=== PATIENT | female | born 1950 | race Caucasian/White ===

== ENCOUNTER 2016-10-02 14:42 | Inpatient (IN) | payer MEDICARE, OTHER ==
[~2016-10-02] VITALS: Ht 160 cm; Wt 106.7 kg
[~2016-10-02 14:42] MED LIST: AZIL80TA PO; NEBI20TA2 PO
[2016-10-02] MEDS ORDERED: VERA240C2 PO (15:28)
[2016-10-02] MEDS ORDERED: VALS1TAB28 PO (15:28)
[2016-10-02] MEDS ORDERED: ACETAMINOPHEN 325 MG TABLET PO ONE (15:30)
[2016-10-02] MEDS ORDERED: ASPIRIN 81 MG TABLET CHEW PO ONE (15:30)
[2016-10-02 15:46] LABS: BLOOD UREA NITROGEN 16 mg/dL (7-18)
[2016-10-02] MEDS ORDERED: ACETAMINOPHEN 325 MG TABLET ONE (15:47)
[2016-10-02] MEDS ORDERED: ASPIRIN 81 MG TABLET CHEW ONE (15:47)
[2016-10-02 16:07] LABS: DIFF TOTAL CELLS COUNTED 100 CELL DIFF
[2016-10-02 16:10] LABS: VERIFY COUNTS? YES
[2016-10-02 16:18] LABS: IS PT STATUS REG ER OR PRE ER? YES
[2016-10-02] MEDS ORDERED: NITROGLYCERIN OINT 2%, 1GM TP ONE ×2 (17:00→18:28)
[2016-10-02] MEDS ORDERED: BISACODYL 10 MG SUPP PR PRN (17:30)
[2016-10-02] MEDS ORDERED: SENNA/DOCUSATE TABLET PO PRN (17:30)
[2016-10-02] MEDS ORDERED: MORPHINE SULFATE 4 MG/ML, 1ML IV PRN (17:30)
[2016-10-02] MEDS ORDERED: ACETAMINOPHEN 650 MG/20.3 ML UDC PO PRN (17:30)
[2016-10-02] MEDS ORDERED: FUROSEMIDE 20 MG/2 ML IV ONE (17:30)
[2016-10-02] MEDS ORDERED: LABETALOL 5MG/ML, 20ML IV PRN (17:30)
[2016-10-02] MEDS ORDERED: NITROGLYCERIN 0.4 MG/SPRAY SL PRN (17:30)
[2016-10-02 18:07] LABS: ASPARTATE AMINO TRANSFERASE 29 U/L (15-37); BLOOD UREA NITROGEN 16 mg/dL (7-18); C-REACTIVE PROTEIN, QUANT 0.62 mg/dL (0.02-0.49)
[2016-10-02] MEDS ORDERED: FUROSEMIDE 20 MG/2 ML ONE (18:30)
[2016-10-02] MEDS ORDERED: HEPARIN 5,000 UNITS/ML, 1ML ONE (18:30)
[2016-10-02] MEDS: HEPARIN 5,000 UNITS/ML, 1ML SQ SCH (18:35)
[2016-10-02 19:50] VITALS: BP 128/86
[2016-10-02] MEDS: SIMVASTATIN 10 MG TABLET PO SCH (21:58)
[2016-10-02] MEDS: SODIUM CHLORIDE FLUSH 10ML SYR IVF SCH (21:58)
[2016-10-02 23:39] LABS: IS PT STATUS REG ER OR PRE ER? NO
[2016-10-03 02:00] VITALS: BP 131/82
[2016-10-03] MEDS: HEPARIN 5,000 UNITS/ML, 1ML SQ SCH ×3 (02:40→20:18)
[2016-10-03 05:38] LABS: BLOOD UREA NITROGEN 16 mg/dL (7-18)
[2016-10-03 05:42] LABS: ASPARTATE AMINO TRANSFERASE 23 U/L (15-37)
[2016-10-03 05:50] LABS: IS PT STATUS REG ER OR PRE ER? NO
[2016-10-03 07:42] VITALS: BP 104/69
[2016-10-03] MEDS ORDERED: MAGNESIUM SULFATE PMX 2GM/50ML 50 ML IV ONE (08:30)
[2016-10-03] MEDS ORDERED: POTASSIUM CHLORIDE 20 MEQ TAB.ER.PRT PO ONE (08:30)
[2016-10-03] MEDS ORDERED: REGADENOSON 0.4 MG/5 ML SYRINGE ONE (09:06)
[2016-10-03] MEDS: SODIUM CHLORIDE FLUSH 10ML SYR IVF SCH ×2 (12:43→20:19)
[2016-10-03] MEDS: ASPIRIN 81 MG TABLET EC PO SCH (12:43)
[2016-10-03] MEDS: BETAMETHASONE DIPRO CRM 0.05%, 15GM TP SCH (12:48)
[2016-10-03] MEDS ORDERED: POTASSIUM CHLORIDE 20 MEQ TAB.ER.PRT ONE (12:53)
[2016-10-03 13:46] VITALS: BP 138/83
[2016-10-03 19:59] VITALS: BP 122/75
[2016-10-03] MEDS: SIMVASTATIN 10 MG TABLET PO SCH (20:19)
[2016-10-04 02:07] VITALS: BP 129/83
[2016-10-04] MEDS: HEPARIN 5,000 UNITS/ML, 1ML SQ SCH ×3 (05:50→19:53)
[2016-10-04 08:07] VITALS: BP 125/76
[2016-10-04] MEDS ORDERED: HYDROCHLOROTHIAZIDE 12.5 MG CAPSULE PO SCH (09:00)
[2016-10-04] MEDS ORDERED: VALSARTAN 320 MG TABLET PO SCH (09:00)
[2016-10-04] MEDS: SODIUM CHLORIDE FLUSH 10ML SYR IVF SCH ×2 (09:00→19:54)
[2016-10-04] MEDS: ASPIRIN 81 MG TABLET EC PO SCH (09:03)
[2016-10-04] MEDS: BETAMETHASONE DIPRO CRM 0.05%, 15GM TP SCH (09:04)
[2016-10-04 09:47] VITALS: BP 138/60
[2016-10-04] MEDS ORDERED: DIPHENHYDRAMINE 25 MG CAPSULE PO ONE (12:00)
[2016-10-04] MEDS ORDERED: ACETAMINOPHEN 500 MG TABLET PO ONE (12:00)
[2016-10-04] MEDS: FAMOTIDINE 40 MG TABLET PO SCH ×2 (12:56→19:53)
[2016-10-04 13:30] VITALS: BP 118/73
[2016-10-04 19:34] VITALS: BP 127/86
[2016-10-04] MEDS: SIMVASTATIN 10 MG TABLET PO SCH (19:52)
[2016-10-04] MEDS: METOPROLOL TARTRATE 25 MG TABLET PO SCH (19:53)
[2016-10-05 01:52] VITALS: BP 107/79
[2016-10-05] MEDS: HEPARIN 5,000 UNITS/ML, 1ML SQ SCH (05:03)
[2016-10-05] MEDS ORDERED: ASPI-621 PO (07:50)
[2016-10-05] MEDS ORDERED: METO25TA35 PO (07:50)
[2016-10-05] MEDS ORDERED: SIMV10TA3 PO (07:50)
[2016-10-05] MEDS: METOPROLOL TARTRATE 25 MG TABLET PO SCH (07:57)
[2016-10-05] MEDS: FAMOTIDINE 40 MG TABLET PO SCH (07:57)
[2016-10-05] MEDS: BETAMETHASONE DIPRO CRM 0.05%, 15GM TP SCH (07:57)
[2016-10-05] MEDS: ASPIRIN 81 MG TABLET EC PO SCH (07:57)
[2016-10-05 08:26] VITALS: BP 114/75
[2016-10-05] MEDS: SODIUM CHLORIDE FLUSH 10ML SYR IVF SCH (09:41)
== END 2016-10-05 10:35 | disposition home or self-care (01) | DRG 92 ==
LOC: ED 16:46 → EDIP 16:47 → ED 16:53 → 5SO 19:39 → DCLOUNGE 10-05 10:25
PROVIDERS: ADMIT Internal Medicine; ATTEND Family Medicine
DX: R20.2 Paresthesia of skin (principal); Z68.41 Body mass index [BMI] 40.0-44.9, adult; N18.9 Chronic kidney disease, unspecified; E78.5 Hyperlipidemia, unspecified; R07.89 Other chest pain; E87.6 Hypokalemia; Z96.642 Presence of left artificial hip joint; T46.1X5A Adverse effect of calcium-channel blockers, initial encounter; E66.9 Obesity, unspecified; D72.829 Elevated white blood cell count, unspecified; I87.8 Other specified disorders of veins; I12.9 Hypertensive chronic kidney disease with stage 1 through stage 4 chronic kidney disease, or unspecified chronic kidney disease; Z90.49 Acquired absence of other specified parts of digestive tract; Y92.89 Other specified places as the place of occurrence of the external cause
CPT/HCPCS: 36415; 70450; 70551; 71020; 78452; 80048; 80053; 80061; 82040; 83735; 83880; 84439; 84443; 84484; 85025; 85027; 85610; 85651; 85730; 86140; 93005; 93017; 93306; 93970; 96374; J1644; J2785; A9502; C9898; J1940; J3475; Q0163

== ENCOUNTER → 2016-10-12 | Outpatient (CLI) | payer MEDICARE, OTHER ==
[~2016-10-12] MED LIST changes: +ASPI-621 PO; +METO25TA35 PO; +SIMV10TA3 PO; +VALS1TAB28 PO; +VERA240C2 PO
== END | disposition home or self-care (01) ==
LOC: WOUND 09:50
PROVIDERS: ATTEND Physician Assistant
DX: L97.821 Non-pressure chronic ulcer of other part of left lower leg limited to breakdown of skin (principal); L97.811 Non-pressure chronic ulcer of other part of right lower leg limited to breakdown of skin; E78.5 Hyperlipidemia, unspecified; L27.8 Dermatitis due to other substances taken internally; I12.9 Hypertensive chronic kidney disease with stage 1 through stage 4 chronic kidney disease, or unspecified chronic kidney disease; N18.4 Chronic kidney disease, stage 4 (severe); E66.9 Obesity, unspecified; I10 Essential (primary) hypertension; Z68.41 Body mass index [BMI] 40.0-44.9, adult; Z72.89 Other problems related to lifestyle
CPT/HCPCS: G0463; WOU0463

== ENCOUNTER → 2016-10-19 | Outpatient (CLI) | payer MEDICARE, OTHER | END | disposition home or self-care (01) | LOC: WOUND 10:07 | PROVIDERS: ATTEND Physician Assistant | DX: L97.811 Non-pressure chronic ulcer of other part of right lower leg limited to breakdown of skin (principal); L97.821 Non-pressure chronic ulcer of other part of left lower leg limited to breakdown of skin; I10 Essential (primary) hypertension; E78.5 Hyperlipidemia, unspecified; L27.8 Dermatitis due to other substances taken internally; Z72.89 Other problems related to lifestyle; Z68.41 Body mass index [BMI] 40.0-44.9, adult; I12.9 Hypertensive chronic kidney disease with stage 1 through stage 4 chronic kidney disease, or unspecified chronic kidney disease; N18.4 Chronic kidney disease, stage 4 (severe); E66.9 Obesity, unspecified; Z96.642 Presence of left artificial hip joint | CPT/HCPCS: G0463; WOU0463 ==

== ENCOUNTER → 2016-10-31 | Outpatient (CLI) | payer MEDICARE, OTHER | END | disposition home or self-care (01) | LOC: CFH 10:17 | PROVIDERS: ATTEND Physician Assistant | DX: I87.2 Venous insufficiency (chronic) (peripheral) (principal); S91.002A Unspecified open wound, left ankle, initial encounter; S91.001A Unspecified open wound, right ankle, initial encounter; R60.0 Localized edema; I65.23 Occlusion and stenosis of bilateral carotid arteries; X58.XXXA Exposure to other specified factors, initial encounter; Y93.89 Activity, other specified; Y92.89 Other specified places as the place of occurrence of the external cause; Y99.8 Other external cause status | CPT/HCPCS: 93922; 93925; 93970 ==

== ENCOUNTER → 2016-11-02 | Outpatient (CLI) | payer MEDICARE, OTHER | END | disposition home or self-care (01) | LOC: WOUND 10:08 | PROVIDERS: ATTEND Physician Assistant | DX: L97.811 Non-pressure chronic ulcer of other part of right lower leg limited to breakdown of skin (principal); L97.821 Non-pressure chronic ulcer of other part of left lower leg limited to breakdown of skin; I87.303 Chronic venous hypertension (idiopathic) without complications of bilateral lower extremity; L27.8 Dermatitis due to other substances taken internally; E78.5 Hyperlipidemia, unspecified; E66.9 Obesity, unspecified; I12.9 Hypertensive chronic kidney disease with stage 1 through stage 4 chronic kidney disease, or unspecified chronic kidney disease; N18.4 Chronic kidney disease, stage 4 (severe); Z96.642 Presence of left artificial hip joint; Z68.41 Body mass index [BMI] 40.0-44.9, adult; Z72.89 Other problems related to lifestyle | CPT/HCPCS: G0463; WOU0463 ==

== ENCOUNTER → 2017-02-18 | Outpatient (CLI) | payer MEDICARE, OTHER | END | disposition home or self-care (01) | LOC: WOUND 11:01 | PROVIDERS: ATTEND Internal Medicine | DX: E11.622 Type 2 diabetes mellitus with other skin ulcer (principal); L97.811 Non-pressure chronic ulcer of other part of right lower leg limited to breakdown of skin; I87.303 Chronic venous hypertension (idiopathic) without complications of bilateral lower extremity; E11.22 Type 2 diabetes mellitus with diabetic chronic kidney disease; I12.9 Hypertensive chronic kidney disease with stage 1 through stage 4 chronic kidney disease, or unspecified chronic kidney disease; N18.4 Chronic kidney disease, stage 4 (severe); E78.5 Hyperlipidemia, unspecified; E66.9 Obesity, unspecified; Z68.41 Body mass index [BMI] 40.0-44.9, adult; Z72.89 Other problems related to lifestyle; Z96.642 Presence of left artificial hip joint | CPT/HCPCS: G0463; WOU0463 ==

== ENCOUNTER → 2017-03-04 | Outpatient (CLI) | payer MEDICARE, OTHER | LOC: WOUND 11:20 | PROVIDERS: ATTEND Family Medicine | DX: E11.622 Type 2 diabetes mellitus with other skin ulcer (principal); L97.811 Non-pressure chronic ulcer of other part of right lower leg limited to breakdown of skin; I87.303 Chronic venous hypertension (idiopathic) without complications of bilateral lower extremity; E11.22 Type 2 diabetes mellitus with diabetic chronic kidney disease; I12.9 Hypertensive chronic kidney disease with stage 1 through stage 4 chronic kidney disease, or unspecified chronic kidney disease; N18.4 Chronic kidney disease, stage 4 (severe); E78.5 Hyperlipidemia, unspecified; E66.9 Obesity, unspecified; Z68.41 Body mass index [BMI] 40.0-44.9, adult; Z96.642 Presence of left artificial hip joint; Z90.49 Acquired absence of other specified parts of digestive tract; Z72.89 Other problems related to lifestyle | CPT/HCPCS: G0463; WOU0463 ==

== ENCOUNTER → 2017-03-11 | Outpatient (CLI) | payer MEDICARE, OTHER | END | disposition home or self-care (01) | LOC: WOUND 13:14 | PROVIDERS: ATTEND Family Medicine | DX: I87.311 Chronic venous hypertension (idiopathic) with ulcer of right lower extremity (principal); E11.622 Type 2 diabetes mellitus with other skin ulcer; L97.811 Non-pressure chronic ulcer of other part of right lower leg limited to breakdown of skin; E11.22 Type 2 diabetes mellitus with diabetic chronic kidney disease; I12.9 Hypertensive chronic kidney disease with stage 1 through stage 4 chronic kidney disease, or unspecified chronic kidney disease; N18.4 Chronic kidney disease, stage 4 (severe); E66.9 Obesity, unspecified; E78.5 Hyperlipidemia, unspecified; Z68.41 Body mass index [BMI] 40.0-44.9, adult; Z72.89 Other problems related to lifestyle; Z96.642 Presence of left artificial hip joint; Z90.49 Acquired absence of other specified parts of digestive tract | CPT/HCPCS: 97597; 97598 ==

== ENCOUNTER → 2017-03-18 | Outpatient (CLI) | payer MEDICARE, OTHER | END | disposition home or self-care (01) | LOC: WOUND 13:23 | PROVIDERS: ATTEND Family Medicine | DX: E11.622 Type 2 diabetes mellitus with other skin ulcer (principal); L97.811 Non-pressure chronic ulcer of other part of right lower leg limited to breakdown of skin; L97.821 Non-pressure chronic ulcer of other part of left lower leg limited to breakdown of skin; E78.5 Hyperlipidemia, unspecified; E66.9 Obesity, unspecified; E11.22 Type 2 diabetes mellitus with diabetic chronic kidney disease; I12.9 Hypertensive chronic kidney disease with stage 1 through stage 4 chronic kidney disease, or unspecified chronic kidney disease; N18.4 Chronic kidney disease, stage 4 (severe); Z90.49 Acquired absence of other specified parts of digestive tract; Z68.41 Body mass index [BMI] 40.0-44.9, adult; Z72.89 Other problems related to lifestyle; Z96.642 Presence of left artificial hip joint | CPT/HCPCS: 11042; 97597; 97598; G0463; WOU0463 ==

== ENCOUNTER → 2017-03-28 | Outpatient (CLI) | payer MEDICARE, OTHER | END | disposition home or self-care (01) | LOC: WOUND 14:07 | PROVIDERS: ATTEND Podiatrist Foot & Ankle Surgery | DX: I87.313 Chronic venous hypertension (idiopathic) with ulcer of bilateral lower extremity (principal); L97.821 Non-pressure chronic ulcer of other part of left lower leg limited to breakdown of skin; L97.811 Non-pressure chronic ulcer of other part of right lower leg limited to breakdown of skin; E78.5 Hyperlipidemia, unspecified; E66.9 Obesity, unspecified; E11.22 Type 2 diabetes mellitus with diabetic chronic kidney disease; I12.9 Hypertensive chronic kidney disease with stage 1 through stage 4 chronic kidney disease, or unspecified chronic kidney disease; N18.4 Chronic kidney disease, stage 4 (severe); Z72.89 Other problems related to lifestyle; Z68.41 Body mass index [BMI] 40.0-44.9, adult | CPT/HCPCS: 97597 ==

== ENCOUNTER → 2017-04-04 | Outpatient (CLI) | payer MEDICARE, OTHER | END | disposition home or self-care (01) | LOC: WOUND 09:00 | PROVIDERS: ATTEND Podiatrist Foot & Ankle Surgery | DX: L97.811 Non-pressure chronic ulcer of other part of right lower leg limited to breakdown of skin (principal); I87.303 Chronic venous hypertension (idiopathic) without complications of bilateral lower extremity; E78.5 Hyperlipidemia, unspecified; E66.9 Obesity, unspecified; E11.22 Type 2 diabetes mellitus with diabetic chronic kidney disease; I12.9 Hypertensive chronic kidney disease with stage 1 through stage 4 chronic kidney disease, or unspecified chronic kidney disease; N18.4 Chronic kidney disease, stage 4 (severe); Z72.89 Other problems related to lifestyle; Z68.41 Body mass index [BMI] 40.0-44.9, adult; Z96.642 Presence of left artificial hip joint; Z90.49 Acquired absence of other specified parts of digestive tract | CPT/HCPCS: G0463; WOU0463 ==

== ENCOUNTER → 2017-04-25 | Outpatient (CLI) | payer MEDICARE, OTHER | END | disposition home or self-care (01) | LOC: WOUND 10:00 | PROVIDERS: ATTEND Podiatrist Foot & Ankle Surgery | DX: E11.622 Type 2 diabetes mellitus with other skin ulcer (principal); L97.811 Non-pressure chronic ulcer of other part of right lower leg limited to breakdown of skin; I87.303 Chronic venous hypertension (idiopathic) without complications of bilateral lower extremity; E78.5 Hyperlipidemia, unspecified; E11.22 Type 2 diabetes mellitus with diabetic chronic kidney disease; I12.9 Hypertensive chronic kidney disease with stage 1 through stage 4 chronic kidney disease, or unspecified chronic kidney disease; N18.4 Chronic kidney disease, stage 4 (severe); E66.9 Obesity, unspecified; Z68.41 Body mass index [BMI] 40.0-44.9, adult; Z72.89 Other problems related to lifestyle; Z96.642 Presence of left artificial hip joint | CPT/HCPCS: 97597; 97598 ==

== ENCOUNTER → 2017-04-29 | Outpatient (CLI) | payer MEDICARE, OTHER | END | disposition home or self-care (01) | LOC: WOUND 14:00 | PROVIDERS: ATTEND Internal Medicine Cardiovascular Disease | DX: I87.311 Chronic venous hypertension (idiopathic) with ulcer of right lower extremity (principal); E11.622 Type 2 diabetes mellitus with other skin ulcer; L97.811 Non-pressure chronic ulcer of other part of right lower leg limited to breakdown of skin; E78.5 Hyperlipidemia, unspecified; E11.22 Type 2 diabetes mellitus with diabetic chronic kidney disease; I12.9 Hypertensive chronic kidney disease with stage 1 through stage 4 chronic kidney disease, or unspecified chronic kidney disease; N18.4 Chronic kidney disease, stage 4 (severe); E66.9 Obesity, unspecified; Z68.41 Body mass index [BMI] 40.0-44.9, adult; Z72.89 Other problems related to lifestyle; Z96.652 Presence of left artificial knee joint; Z90.49 Acquired absence of other specified parts of digestive tract | CPT/HCPCS: 36475 ==

== ENCOUNTER → 2017-05-01 | Outpatient (CLI) | payer MEDICARE, OTHER | END | disposition home or self-care (01) | LOC: CVU 08:00 | PROVIDERS: ATTEND Internal Medicine Cardiovascular Disease | DX: I87.2 Venous insufficiency (chronic) (peripheral) (principal) | CPT/HCPCS: 93971 ==

== ENCOUNTER → 2017-05-02 | Outpatient (CLI) | payer MEDICARE, OTHER | END | disposition home or self-care (01) | LOC: WOUND 10:41 | PROVIDERS: ATTEND Podiatrist Foot & Ankle Surgery | DX: E11.622 Type 2 diabetes mellitus with other skin ulcer (principal); L97.811 Non-pressure chronic ulcer of other part of right lower leg limited to breakdown of skin; I87.303 Chronic venous hypertension (idiopathic) without complications of bilateral lower extremity; E78.5 Hyperlipidemia, unspecified; E11.22 Type 2 diabetes mellitus with diabetic chronic kidney disease; I12.9 Hypertensive chronic kidney disease with stage 1 through stage 4 chronic kidney disease, or unspecified chronic kidney disease; N18.4 Chronic kidney disease, stage 4 (severe); E66.9 Obesity, unspecified; Z68.41 Body mass index [BMI] 40.0-44.9, adult; Z72.89 Other problems related to lifestyle; Z96.642 Presence of left artificial hip joint; Z96.652 Presence of left artificial knee joint | CPT/HCPCS: 97597 ==

== ENCOUNTER → 2017-05-09 | Outpatient (CLI) | payer MEDICARE, OTHER | END | disposition home or self-care (01) | LOC: WOUND 09:37 | PROVIDERS: ATTEND Podiatrist Foot & Ankle Surgery | DX: E11.622 Type 2 diabetes mellitus with other skin ulcer (principal); L97.811 Non-pressure chronic ulcer of other part of right lower leg limited to breakdown of skin; I87.301 Chronic venous hypertension (idiopathic) without complications of right lower extremity; E78.5 Hyperlipidemia, unspecified; E11.22 Type 2 diabetes mellitus with diabetic chronic kidney disease; I12.9 Hypertensive chronic kidney disease with stage 1 through stage 4 chronic kidney disease, or unspecified chronic kidney disease; N18.4 Chronic kidney disease, stage 4 (severe); E66.9 Obesity, unspecified; Z68.41 Body mass index [BMI] 40.0-44.9, adult; Z96.642 Presence of left artificial hip joint; Z96.652 Presence of left artificial knee joint; Z72.89 Other problems related to lifestyle; Z90.49 Acquired absence of other specified parts of digestive tract | CPT/HCPCS: G0463; WOU0463 ==

== ENCOUNTER 2019-02-15 18:29 | Inpatient (IN) | payer MEDICARE, OTHER ==
[~2019-02-15] VITALS: Ht 160 cm; Wt 110.0 kg
[~2019-02-15 18:29] MED LIST changes: -ASPI-621 PO; +ASPI81TA45 PO; +HYDR-826 PO; +LOSA25TA25 PO; +VERA120C2 PO
[2019-02-15 19:28] LABS: CULTURE INDICATED? YES; MICROSCOPIC INDICATED
[2019-02-15] MEDS ORDERED: methylPREDNISolone SOD SUCC 125 MG/2 ML IV ONE (20:00)
[2019-02-15] MEDS ORDERED: ALBUTEROL/IPRATROPIUM 2.5MG/0.5MG, 3 ML NPPB ONE (20:00)
[2019-02-15] MEDS ORDERED: ALBUTEROL/IPRATROPIUM 2.5MG/0.5MG, 3 ML ONE (20:03)
--- NOTE | 2019-02-15 20:07 | NUR ---
PT RECIEVING BREATHING TX AT THIS TIME.
[2019-02-15] MEDS ORDERED: methylPREDNISolone SOD SUCC 125 MG/2 ML ONE (20:15)
[2019-02-15 20:21] LABS: ALANINE AMINOTRANSFERASE 32 U/L (12-78); ALBUMIN 3.1 g/dL (3.4-5.0); ANION GAP 9 mmol/L (5-15); CALCIUM 9.2 mg/dL (8.5-10.1); CHLORIDE 104 mmol/L (98-107); CREATININE 1.45 mg/dL (0.55-1.02)
[2019-02-15 20:25] LABS: ALKALINE PHOSPHATASE 166 U/L (45-117); BILIRUBIN,TOTAL 1.1 mg/dL (0.2-1.0); TOTAL PROTEIN 7.2 g/dL (6.4-8.2); TROPONIN I < 0.015 ng/mL (0.000-0.045)
[2019-02-15 20:37] LABS: BASOPHILS # (AUTO) 0.05 x10^3/uL (0-0.1); BASOPHILS % (AUTO) 0 % (0-1); EOSINOPHILS # (AUTO) 0.09 x10^3/uL (0-0.4); EOSINOPHILS % (AUTO) 1 % (1-7); LYMPHOCYTES # (AUTO) 1.51 x10^3/uL (1-3.4); LYMPHOCYTES % (AUTO) 12 % (22-44); MEAN CORPUSCULAR HEMOGLOBIN 29.5 pg (27.0-34.8); MEAN CORPUSCULAR HGB CONC 33.1 g/dL (32.4-35.8); MEAN CORPUSCULAR VOLUME 89.1 fL (80-100); MEAN PLATELET VOLUME 9.2 fL (7.4-10.4); MONOCYTES # (AUTO) 1.25 x10^3/uL (0.2-0.8); MONOCYTES % (AUTO) 10 % (2-9); NEUTROPHILS # (AUTO) 9.34 x10^3/uL (1.8-6.8); NEUTROPHILS % (AUTO) 76 % (42-75); PLATELET COUNT 247 x10^3/uL (130-400); RED BLOOD COUNT 5.12 x10^6/uL (3.82-5.3); RED CELL DISTRIBUTION WIDTH 15.2 % (9.6-15.2)
[2019-02-15 20:38] LABS: MD SCAN
[2019-02-15] MEDS ORDERED: LEVO500T8 PO (20:48)
[2019-02-15] MEDS ORDERED: PROM118S PO (20:48)
[2019-02-15] MEDS ORDERED: SODIUM CHLORIDE FLUSH 10ML SYR IVF ONE (21:00)
[2019-02-15] MEDS ORDERED: SODIUM CHLORIDE 0.9% 1,000ML IVBOLUS ONE (21:00)
--- NOTE | 2019-02-15 21:11 | NUR ---
2 ATTMEPTS AT IV FAILED BY PRIMARY RN. 2ND RN ATTEMPT FAILED X1. WILL ATTEMPT US PLACED IV.
--- NOTE | 2019-02-15 21:54 | NUR ---
REPORT FROM [facility] ASSUMED CARE OF PT AWAITING ADMIT BED
[2019-02-15] MEDS ORDERED: CEFTRIAXONE PMX 2GM/50ML 50 ML ONE (22:26)
--- NOTE | 2019-02-15 22:47 | NUR ---
AWAITING ADMIT BED
[2019-02-15] MEDS ORDERED: CEFTRIAXONE PMX 2GM/50ML 50 ML IV ONE (23:00)
[2019-02-16] MEDS ORDERED: AZITHROMYCIN 500 MG in SODIUM CHLORIDE 0.9% 250 ML IV ONE
[2019-02-16 00:03] VITALS: BP 138/85
[2019-02-16] MEDS ORDERED: ACETAMINOPHEN 325 MG TABLET PO PRN (03:00)
[2019-02-16] MEDS ORDERED: ONDANSETRON 2MG/ML, 2ML IVPush PRN (03:00)
[2019-02-16] MEDS ORDERED: LABETALOL 5MG/ML, 20ML IVPush PRN (03:00)
[2019-02-16] MEDS: HEPARIN 5,000 UNITS/ML, 1ML SQ SCH ×3 (03:31→20:00)
[2019-02-16 07:02] VITALS: BP 131/86
[2019-02-16 07:23] LABS: MEAN CORPUSCULAR HEMOGLOBIN 29.1 pg (27.0-34.8); MEAN CORPUSCULAR HGB CONC 32.5 g/dL (32.4-35.8); MEAN CORPUSCULAR VOLUME 89.5 fL (80-100); MEAN PLATELET VOLUME 8.5 fL (7.4-10.4); PLATELET COUNT 310 x10^3/uL (130-400); RED BLOOD COUNT 5.17 x10^6/uL (3.82-5.3); RED CELL DISTRIBUTION WIDTH 15.4 % (9.6-15.2)
[2019-02-16 07:29] LABS: ALANINE AMINOTRANSFERASE 30 U/L (12-78); ALBUMIN 3.2 g/dL (3.4-5.0); ANION GAP 10 mmol/L (5-15); CALCIUM 9.2 mg/dL (8.5-10.1); CHLORIDE 106 mmol/L (98-107); CREATININE 1.27 mg/dL (0.55-1.02)
[2019-02-16 07:31] LABS: ALKALINE PHOSPHATASE 168 U/L (45-117); BILIRUBIN,TOTAL 0.8 mg/dL (0.2-1.0); TOTAL PROTEIN 7.6 g/dL (6.4-8.2)
[2019-02-16 07:43] LABS: BASOPHILS # (AUTO) 0.03 x10^3/uL (0-0.1); BASOPHILS % (AUTO) 0 % (0-1); EOSINOPHILS # (AUTO) 0.01 x10^3/uL (0-0.4); EOSINOPHILS % (AUTO) 0 % (1-7); LYMPHOCYTES # (AUTO) 0.97 x10^3/uL (1-3.4); LYMPHOCYTES % (AUTO) 12 % (22-44); MD SCAN; MONOCYTES # (AUTO) 0.07 x10^3/uL (0.2-0.8); MONOCYTES % (AUTO) 1 % (2-9); NEUTROPHILS # (AUTO) 6.79 x10^3/uL (1.8-6.8); NEUTROPHILS % (AUTO) 86 % (42-75)
[2019-02-16] MEDS: SENNA/DOCUSATE TABLET PO SCH (07:55)
[2019-02-16] MEDS: METOPROLOL TARTRATE 25 MG TABLET PO SCH ×2 (08:05→20:00)
[2019-02-16] MEDS: GUAIFENESIN 200 MG TABLET PO SCH ×4 (08:05→20:00)
[2019-02-16] MEDS: ASPIRIN 81 MG TABLET EC PO SCH (08:05)
[2019-02-16 13:10] VITALS: BP 119/73
[2019-02-16 19:57] VITALS: BP 117/80
[2019-02-16] MEDS: CEFTRIAXONE PMX 2GM/50ML 50 ML IV SCH (22:29)
[2019-02-16] MEDS: AZITHROMYCIN 500 MG in SODIUM CHLORIDE 0.9% 250 ML IV SCH (23:02)
[2019-02-17 01:00] VITALS: BP 110/73
[2019-02-17] MEDS: GUAIFENESIN 200 MG TABLET PO SCH ×4 (05:05→20:13)
[2019-02-17] MEDS: HEPARIN 5,000 UNITS/ML, 1ML SQ SCH ×3 (05:05→20:13)
[2019-02-17 05:07] LABS: BASOPHILS # (AUTO) 0.03 x10^3/uL (0-0.1); BASOPHILS % (AUTO) 0 % (0-1); EOSINOPHILS # (AUTO) 0.14 x10^3/uL (0-0.4); EOSINOPHILS % (AUTO) 1 % (1-7); LYMPHOCYTES % (AUTO) 17 % (22-44); MD NO; MEAN CORPUSCULAR HEMOGLOBIN 29.1 pg (27.0-34.8); MEAN CORPUSCULAR HGB CONC 32.3 g/dL (32.4-35.8); MEAN CORPUSCULAR VOLUME 90.3 fL (80-100); MEAN PLATELET VOLUME 8.8 fL (7.4-10.4); MONOCYTES # (AUTO) 1.02 x10^3/uL (0.2-0.8); MONOCYTES % (AUTO) 8 % (2-9); NEUTROPHILS # (AUTO) 9.48 x10^3/uL (1.8-6.8); NEUTROPHILS % (AUTO) 74 % (42-75); PLATELET COUNT 280 x10^3/uL (130-400); RED BLOOD COUNT 4.53 x10^6/uL (3.82-5.3); RED CELL DISTRIBUTION WIDTH 15.6 % (9.6-15.2)
[2019-02-17 05:18] LABS: ALBUMIN 2.7 g/dL (3.4-5.0); ANION GAP 6 mmol/L (5-15); CALCIUM 8.9 mg/dL (8.5-10.1); CHLORIDE 109 mmol/L (98-107)
[2019-02-17 05:22] LABS: ALANINE AMINOTRANSFERASE 23 U/L (12-78); ALKALINE PHOSPHATASE 122 U/L (45-117); BILIRUBIN,TOTAL 0.4 mg/dL (0.2-1.0); CREATININE 1.05 mg/dL (0.55-1.02); TOTAL PROTEIN 6.5 g/dL (6.4-8.2)
[2019-02-17 07:18] VITALS: BP 151/84
[2019-02-17] MEDS ORDERED: OMNIPAQUE 350 MG/ML, 150 ML BOTTLE ONE (10:06)
[2019-02-17] MEDS: METOPROLOL TARTRATE 25 MG TABLET PO SCH ×2 (10:15→20:13)
[2019-02-17] MEDS: ASPIRIN 81 MG TABLET EC PO SCH (10:15)
[2019-02-17] MEDS: SENNA/DOCUSATE TABLET PO SCH (10:16)
[2019-02-17 12:55] VITALS: BP 104/61
[2019-02-17 18:47] VITALS: BP 114/69
[2019-02-17] MEDS: CEFTRIAXONE PMX 2GM/50ML 50 ML IV SCH (23:17)
[2019-02-17] MEDS: AZITHROMYCIN 500 MG in SODIUM CHLORIDE 0.9% 250 ML IV SCH (23:53)
[2019-02-18 00:52] VITALS: BP 119/77
[2019-02-18] MEDS: HEPARIN 5,000 UNITS/ML, 1ML SQ SCH ×3 (05:05→21:42)
[2019-02-18] MEDS: GUAIFENESIN 200 MG TABLET PO SCH ×4 (05:05→21:41)
[2019-02-18 06:40] VITALS: BP 128/78
[2019-02-18 07:01] LABS: BASOPHILS # (AUTO) 0.06 x10^3/uL (0-0.1); BASOPHILS % (AUTO) 1 % (0-1); EOSINOPHILS # (AUTO) 0.53 x10^3/uL (0-0.4); EOSINOPHILS % (AUTO) 7 % (1-7); LYMPHOCYTES # (AUTO) 2.85 x10^3/uL (1-3.4); LYMPHOCYTES % (AUTO) 35 % (22-44); MD NO; MEAN CORPUSCULAR HEMOGLOBIN 29.3 pg (27.0-34.8); MEAN CORPUSCULAR HGB CONC 32.5 g/dL (32.4-35.8); MEAN CORPUSCULAR VOLUME 90.1 fL (80-100); MEAN PLATELET VOLUME 8.8 fL (7.4-10.4); MONOCYTES # (AUTO) 0.73 x10^3/uL (0.2-0.8); MONOCYTES % (AUTO) 9 % (2-9); NEUTROPHILS # (AUTO) 3.94 x10^3/uL (1.8-6.8); NEUTROPHILS % (AUTO) 49 % (42-75); PLATELET COUNT 260 x10^3/uL (130-400); RED BLOOD COUNT 4.67 x10^6/uL (3.82-5.3); RED CELL DISTRIBUTION WIDTH 15.4 % (9.6-15.2)
[2019-02-18 07:09] LABS: ALANINE AMINOTRANSFERASE 23 U/L (12-78); ALBUMIN 2.7 g/dL (3.4-5.0); ANION GAP 8 mmol/L (5-15); CALCIUM 8.4 mg/dL (8.5-10.1); CHLORIDE 110 mmol/L (98-107); CREATININE 1.01 mg/dL (0.55-1.02)
[2019-02-18 07:12] LABS: ALKALINE PHOSPHATASE 114 U/L (45-117); BILIRUBIN,TOTAL 0.3 mg/dL (0.2-1.0); TOTAL PROTEIN 6.1 g/dL (6.4-8.2)
[2019-02-18] MEDS: METOPROLOL TARTRATE 25 MG TABLET PO SCH ×2 (08:33→21:41)
[2019-02-18] MEDS: ASPIRIN 81 MG TABLET EC PO SCH (08:33)
[2019-02-18] MEDS: SENNA/DOCUSATE TABLET PO SCH (08:33)
[2019-02-18 13:45] VITALS: BP 120/76
[2019-02-18 19:00] VITALS: BP 117/60
[2019-02-18 21:43] VITALS: BP 123/78
[2019-02-18] MEDS: CEFTRIAXONE PMX 2GM/50ML 50 ML IV SCH (23:11)
[2019-02-18] MEDS: AZITHROMYCIN 500 MG in SODIUM CHLORIDE 0.9% 250 ML IV SCH (23:47)
[2019-02-19 01:17] VITALS: BP 148/79
[2019-02-19] MEDS: HEPARIN 5,000 UNITS/ML, 1ML SQ SCH ×2 (05:23→12:40)
[2019-02-19] MEDS: GUAIFENESIN 200 MG TABLET PO SCH ×2 (05:23→12:20)
[2019-02-19 06:23] LABS: BASOPHILS # (AUTO) 0.05 x10^3/uL (0-0.1); BASOPHILS % (AUTO) 1 % (0-1); EOSINOPHILS # (AUTO) 0.71 x10^3/uL (0-0.4); EOSINOPHILS % (AUTO) 9 % (1-7); LYMPHOCYTES # (AUTO) 2.57 x10^3/uL (1-3.4); LYMPHOCYTES % (AUTO) 34 % (22-44); MD NO; MEAN CORPUSCULAR HEMOGLOBIN 29.8 pg (27.0-34.8); MEAN CORPUSCULAR HGB CONC 32.6 g/dL (32.4-35.8); MEAN CORPUSCULAR VOLUME 91.4 fL (80-100); MEAN PLATELET VOLUME 8.8 fL (7.4-10.4); MONOCYTES # (AUTO) 0.61 x10^3/uL (0.2-0.8); MONOCYTES % (AUTO) 8 % (2-9); NEUTROPHILS # (AUTO) 3.74 x10^3/uL (1.8-6.8); NEUTROPHILS % (AUTO) 49 % (42-75); PLATELET COUNT 281 x10^3/uL (130-400); RED BLOOD COUNT 4.77 x10^6/uL (3.82-5.3); RED CELL DISTRIBUTION WIDTH 15.9 % (9.6-15.2)
[2019-02-19 06:34] LABS: ANION GAP 4 mmol/L (5-15); CALCIUM 8.2 mg/dL (8.5-10.1); CHLORIDE 111 mmol/L (98-107); CREATININE 0.88 mg/dL (0.55-1.02)
[2019-02-19 07:42] VITALS: BP 159/100
[2019-02-19] MEDS ORDERED: CEFD300C37 PO (07:54)
[2019-02-19] MEDS ORDERED: DOXY100C2 PO (07:54)
[2019-02-19] MEDS ORDERED: GUAI200T37 PO (07:55)
[2019-02-19] MEDS ORDERED: CEFTRIAXONE PMX 2GM/50ML 50 ML IV SCH (08:00)
[2019-02-19] MEDS: ASPIRIN 81 MG TABLET EC PO SCH (09:49)
[2019-02-19] MEDS: METOPROLOL TARTRATE 25 MG TABLET PO SCH (09:50)
[2019-02-19] MEDS: SENNA/DOCUSATE TABLET PO SCH (09:51)
== END 2019-02-19 13:50 | disposition home health service (06) | DRG 871 ==
LOC: ED 19:35 → EDIP 22:00 → 4WST 02-16 00:31 → DCLOUNGE 02-19 13:50
PROVIDERS: ADMIT Family Medicine; ATTEND Hospitalist
DX: A41.9 Sepsis, unspecified organism (principal); J18.1 Lobar pneumonia, unspecified organism; N17.0 Acute kidney failure with tubular necrosis; I50.30 Unspecified diastolic (congestive) heart failure; I13.0 Hypertensive heart and chronic kidney disease with heart failure and stage 1 through stage 4 chronic kidney disease, or unspecified chronic kidney disease; N39.0 Urinary tract infection, site not specified; Z68.41 Body mass index [BMI] 40.0-44.9, adult; E66.01 Morbid (severe) obesity due to excess calories; Z71.3 Dietary counseling and surveillance; E78.5 Hyperlipidemia, unspecified; G71.00 Muscular dystrophy, unspecified; I49.3 Ventricular premature depolarization; I87.8 Other specified disorders of veins; J45.909 Unspecified asthma, uncomplicated; K59.00 Constipation, unspecified; N18.9 Chronic kidney disease, unspecified; Z82.49 Family history of ischemic heart disease and other diseases of the circulatory system; Z82.5 Family history of asthma and other chronic lower respiratory diseases; Z86.73 Personal history of transient ischemic attack (TIA), and cerebral infarction without residual deficits; Z87.891 Personal history of nicotine dependence; Z96.642 Presence of left artificial hip joint; Z90.49 Acquired absence of other specified parts of digestive tract
CPT/HCPCS: 36415; 71045; 71275; 80048; 80053; 81001; 83605; 83735; 83880; 84100; 84145; 84443; 84484; 85025; 87040; 87070; 87086; 87205; 93005; 93970; 94640; 96365; 96366; 96375; G0378; J0456; J0696; J1644; J7620; Q9967; J2930; J7030; J7050

== ENCOUNTER → 2019-02-24 | Outpatient (CLI) | payer MEDICARE, OTHER ==
[~2019-02-24] MED LIST changes: +CEFD300C37 PO; +DOXY100C2 PO; +GUAI200T37 PO; +LEVO500T8 PO; +PROM118S PO
== END | disposition home or self-care (01) ==
LOC: CVU 13:17
PROVIDERS: ATTEND Registered Nurse
DX: I87.2 Venous insufficiency (chronic) (peripheral) (principal); R60.9 Edema, unspecified; Z87.891 Personal history of nicotine dependence
CPT/HCPCS: 93970

== ENCOUNTER → 2019-12-23 | Outpatient (CLI) | payer MEDICARE, OTHER ==
[~2019-12-23] MED LIST changes: +CYCL-259 PO; +FURO20TA3 PO; +HYDR-3240 PO; +LOSA100T14 PO; +METO50TA82 PO; +POTA10CA PO; +PRED20TA PO; +SIMV10TA18 PO; -SIMV10TA3 PO; -VALS1TAB28 PO; +VALS1TAB29 PO
[2019-12-23 14:39] LABS: BASOPHILS # (AUTO) 0.02 x10^3/uL (0-0.1); BASOPHILS % (AUTO) 0 % (0-1); EOSINOPHILS # (AUTO) 0.86 x10^3/uL (0-0.4); EOSINOPHILS % (AUTO) 10 % (1-7); LYMPHOCYTES # (AUTO) 1.98 x10^3/uL (1-3.4); LYMPHOCYTES % (AUTO) 23 % (22-44); MD NO; MEAN CORPUSCULAR HEMOGLOBIN 30.3 pg (27.0-34.8); MEAN CORPUSCULAR HGB CONC 32.9 g/dL (32.4-35.8); MEAN PLATELET VOLUME 8.7 fL (7.4-10.4); MONOCYTES # (AUTO) 0.71 x10^3/uL (0.2-0.8); MONOCYTES % (AUTO) 8 % (2-9); NEUTROPHILS # (AUTO) 5.08 x10^3/uL (1.8-6.8); NEUTROPHILS % (AUTO) 59 % (42-75); PLATELET COUNT 230 x10^3/uL (130-400); RED BLOOD COUNT 4.61 x10^6/uL (3.82-5.3)
[2019-12-23 14:45] LABS: MICROSCOPIC AUTO
[2019-12-23 14:46] LABS: ALBUMIN 3.5 g/dL (3.4-5.0); ANION GAP 4 mmol/L (5-15); CALCIUM 9.4 mg/dL (8.5-10.1); CHLORIDE 111 mmol/L (98-107); INTERNATIONAL NORMALIZED RATIO 0.94 (0.93-1.1); PROTHROMBIN TIME 9.7 Seconds (9.6-11.5)
[2019-12-23 14:48] LABS: ALANINE AMINOTRANSFERASE 23 U/L (12-78); BILIRUBIN,TOTAL 0.7 mg/dL (0.2-1.0)
[2019-12-23 14:49] LABS: ALKALINE PHOSPHATASE 113 U/L (45-117); TOTAL PROTEIN 7.1 g/dL (6.4-8.2)
== END | disposition home or self-care (01) ==
LOC: STAR 12:58
PROVIDERS: ATTEND Neurological Surgery
DX: Z01.810 Encounter for preprocedural cardiovascular examination (principal); Z01.811 Encounter for preprocedural respiratory examination; Z01.812 Encounter for preprocedural laboratory examination; R00.1 Bradycardia, unspecified; R79.1 Abnormal coagulation profile; R94.31 Abnormal electrocardiogram [ECG] [EKG]; R82.90 Unspecified abnormal findings in urine; M51.36 Other intervertebral disc degeneration, lumbar region; M48.061 Spinal stenosis, lumbar region without neurogenic claudication
CPT/HCPCS: 36415; 71046; 80053; 81001; 85025; 85610; 85730; 87077; 87086; 87186; 93005

== ENCOUNTER 2020-06-02 07:46 | Emergency (ER) | payer MEDICARE, OTHER ==
[~2020-06-02] VITALS: Ht 160 cm; Wt 93.0 kg
[~2020-06-02 07:46] MED LIST changes: -CYCL-259 PO; +CYCL10TA2 PO; +HYDR-1067 PO; -HYDR-3240 PO
--- NOTE | 2020-06-02 08:02 | NUR ---
PT COMES IN C/O "I HAVE REALLY BAD PAIN IN MY RIGHT LEG. ITS SO BAD I HAVENT BEEN ABLE TO SLEEP FOR PAST 3 DAYS". MONITORS CONNNECTED. PROVIDER AT BEDSIDE FOR ASSESSMENT
--- NOTE | 2020-06-02 08:06 | NUR ---
PROVIDER AT BEDSIDE FOR ASSESSMENT AND TO DISCUSS PLAN OF CARE.
--- NOTE | 2020-06-02 08:15 | NUR ---
CURRENT HOME PHARMACY CONFIRMED. HOME MEDICATIONS AND DOSES CONFIRMED W/PT. MED REC COMPLETE
[2020-06-02] MEDS ORDERED: KETOROLAC 30 MG/1 ML ONE (08:19)
--- NOTE | 2020-06-02 08:24 | NUR ---
LABS COLLECTED, EKG COMPLETE, ULTRASOUND AT BEDSIDE
--- NOTE | 2020-06-02 08:25 | NUR ---
ORDERED MEDICATION ADMINISTERED.
[2020-06-02] MEDS ORDERED: KETOROLAC 30 MG/1 ML IM ONE (08:30)
[2020-06-02 08:33] LABS: BASOPHILS % (AUTO) 1 % (0-1); EOSINOPHILS % (AUTO) 8 % (1-7); LYMPHOCYTES % (AUTO) 23 % (22-44); MD NO; MEAN CORPUSCULAR HGB CONC 33.5 g/dL (32.4-35.8); MEAN PLATELET VOLUME 9.2 fL (7.4-10.4); MONOCYTES % (AUTO) 12 % (2-9); NEUTROPHILS % (AUTO) 56 % (42-75); PLATELET COUNT 205 x10^3/uL (130-400); RED BLOOD COUNT 4.52 x10^6/uL (3.82-5.3)
[2020-06-02 08:41] LABS: ALANINE AMINOTRANSFERASE 16 U/L (12-78); ALBUMIN 3.6 g/dL (3.4-5.0); ANION GAP 8 mmol/L (5-15); CALCIUM 9.1 mg/dL (8.5-10.1); CHLORIDE 112 mmol/L (98-107); CREATININE 0.92 mg/dL (0.55-1.02)
[2020-06-02 08:43] LABS: ALKALINE PHOSPHATASE 93 U/L (45-117)
[2020-06-02] MEDS ORDERED: OXYcodone/APAP 5/325MG TABLET ONE (08:54)
[2020-06-02] MEDS ORDERED: OXYcodone/APAP 5/325MG TABLET PO ONE (09:00)
--- NOTE | 2020-06-02 09:11 | NUR ---
PROVIDER AT BEDSIDE TO DISCUSS RESULTS AND DISCHARGE
[2020-06-02 09:33] VITALS: BP 152/88
--- NOTE | 2020-06-02 09:33 | NUR ---
PT DAUGHTER ASSISTING PT TO GET DRESSED FOR DISCHARGE. DISCHARGE INSTRUCTIONS EXPLAINED TO PT AND DAUGHTER. BOTH VERBALIZED UNDERSTANDING
--- NOTE | 2020-06-02 09:37 | NUR ---
PT TO DISCHARGE W/WHEELCHAIR ASSISTANCE. PT ENCOURAGED TO FOLLOWUP DISCUSSED. PT EDCUATED TO RETURN TO THE ED W/NEW OR WORSENING SYMPTOMS. RX GIVEN
== END 2020-06-02 09:56 | disposition home or self-care (01) ==
LOC: ED 09:32
DX: M54.41 Lumbago with sciatica, right side (principal); M79.661 Pain in right lower leg; I10 Essential (primary) hypertension; E78.5 Hyperlipidemia, unspecified; G89.29 Other chronic pain; Z88.2 Allergy status to sulfonamides; Z86.73 Personal history of transient ischemic attack (TIA), and cerebral infarction without residual deficits; Z90.49 Acquired absence of other specified parts of digestive tract; Z87.891 Personal history of nicotine dependence; Z79.899 Other long term (current) drug therapy
CPT/HCPCS: 36415; 80053; 85025; 93005; 93971; 96372; 99285; J1885

== ENCOUNTER 2020-07-18 08:45 | Outpatient (CLI) | payer MEDICARE, OTHER ==
[~2020-07-18 08:45] MED LIST changes: -DOXY100C2 PO; +DOXY100C5 PO; -HYDR-1067 PO; +HYDR-2214 PO
[2020-07-18] MEDS ORDERED: HYDR-3241 PO (09:43)
[2020-07-18 10:30] LABS: BASOPHILS % (AUTO) 1 % (0-1); EOSINOPHILS % (AUTO) 8 % (1-7); LYMPHOCYTES % (AUTO) 20 % (22-44); MEAN CORPUSCULAR HEMOGLOBIN 30.3 pg (27.0-34.8); MEAN CORPUSCULAR HGB CONC 33.5 g/dL (32.4-35.8); MONOCYTES % (AUTO) 10 % (2-9); NEUTROPHILS % (AUTO) 61 % (42-75); PLATELET COUNT 194 x10^3/uL (130-400); RED BLOOD COUNT 4.73 x10^6/uL (3.82-5.3); RED CELL DISTRIBUTION WIDTH 14.9 % (9.6-15.2)
[2020-07-18 10:34] LABS: INTERNATIONAL NORMALIZED RATIO 0.98 (0.93-1.1); PROTHROMBIN TIME 10.5 Seconds (9.6-11.5)
[2020-07-18 10:35] LABS: ALBUMIN 3.6 g/dL (3.4-5.0); ANION GAP 8 mmol/L (5-15); CHLORIDE 109 mmol/L (98-107)
[2020-07-18 10:38] LABS: ALANINE AMINOTRANSFERASE 16 U/L (12-78); ALKALINE PHOSPHATASE 95 U/L (45-117); BILIRUBIN,TOTAL 0.8 mg/dL (0.2-1.0); CREATININE 0.86 mg/dL (0.55-1.02)
[2020-07-18 10:53] LABS: MICROSCOPIC AUTO
[2020-07-22] MEDS ORDERED: CIPR500T4 PO (13:02)
[2020-07-27] MEDS ORDERED: HYDR-3248 PO (08:28)
[2020-07-27] MEDS ORDERED: METH-640 PO (08:30)
[2020-09-01] MEDS ORDERED: DOXY100T PO (15:08)
[2020-09-01] MEDS ORDERED: DAPT500V6 IVPB (15:08)
== END 2020-07-18 23:59 | disposition home or self-care (01) ==
LOC: STAR 08:45
PROVIDERS: ATTEND Neurological Surgery
DX: Z01.812 Encounter for preprocedural laboratory examination (principal); Z20.822 Contact with and (suspected) exposure to COVID-19; Z01.810 Encounter for preprocedural cardiovascular examination; Z01.818 Encounter for other preprocedural examination; Z01.811 Encounter for preprocedural respiratory examination; R82.90 Unspecified abnormal findings in urine; R94.31 Abnormal electrocardiogram [ECG] [EKG]; R79.1 Abnormal coagulation profile; M48.061 Spinal stenosis, lumbar region without neurogenic claudication; M54.16 Radiculopathy, lumbar region; J92.9 Pleural plaque without asbestos
CPT/HCPCS: 36415; 71046; 80053; 81001; 85025; 85610; 85730; 87077; 87086; 93005; U0003; 87186

== ENCOUNTER 2020-08-24 18:06 | Emergency (ER) | payer MEDICARE, OTHER ==
[~2020-08-24] VITALS: Ht 157.5 cm; Wt 93.0 kg
[~2020-08-24 18:06] MED LIST changes: +CIPR500T4 PO; +DOXY100C2 PO; -DOXY100C5 PO; +HYDR-3241 PO; +HYDR-3248 PO; +METH-640 PO
--- NOTE | 2020-08-24 18:17 | NUR ---
PT BIB [facility]. PT STATED THAT SHE WAS USING HER WALKER TO GO TO THE BATHROOM AT HOME AND HER KNEES GAVE OUT AND SHE FELL ON TO HER KNEE. PT HAD RECENT LUMBAR SURGERY ON 07/22 AND IS NOW C/O LBP AND RIGHT KNEE PAIN. PT WAS UNABLE TO GET UP UNTIL EMS ARRIVED AND ASSISTED HER. PT DENIES ANY NUMBNESS/TINGLING. CMS INTACT.
--- NOTE | 2020-08-24 19:00 | NUR ---
PT TO IMAGING
--- NOTE | 2020-08-24 19:55 | NUR ---
PT HELPED ON TO BEDPAN. SHEETS CHANGED. CALL LIGHT WITHIN REACH.
--- NOTE | 2020-08-24 20:42 | NUR ---
PT RESTING COMFORTABLY IN [facility]. CALL LIGHT WITHIN REACH.
--- NOTE | 2020-08-24 20:52 | NUR ---
report recieved from wilbert zee
[2020-08-24] MEDS ORDERED: OXYcodone/APAP 5/325MG TABLET PO ONE (21:00)
[2020-08-24] MEDS ORDERED: OXYcodone/APAP 5/325MG TABLET ONE (21:01)
--- NOTE | 2020-08-24 21:09 | NUR ---
PT MEDICATED PER EMAR, PT ON THE PHONE WITH SISTER
[2020-08-24 21:40] VITALS: BP 117/90
--- NOTE | 2020-08-24 22:43 | NUR ---
Patient/Caregiver given discharge instructions and they have confirmed that they understand the instructions. Patient able to ambulate with walker at baseline. pt has a lot of family that is able to help her at home as well.
== END 2020-08-24 22:45 | disposition home or self-care (01) ==
LOC: ED 20:29
DX: S39.012A Strain of muscle, fascia and tendon of lower back, initial encounter (principal); S33.5XXA Sprain of ligaments of lumbar spine, initial encounter; S80.02XA Contusion of left knee, initial encounter; S80.01XA Contusion of right knee, initial encounter; E78.5 Hyperlipidemia, unspecified; I10 Essential (primary) hypertension; Z86.73 Personal history of transient ischemic attack (TIA), and cerebral infarction without residual deficits; Z90.49 Acquired absence of other specified parts of digestive tract; Z96.649 Presence of unspecified artificial hip joint; W18.30XA Fall on same level, unspecified, initial encounter; Y93.89 Activity, other specified; Y92.009 Unspecified place in unspecified non-institutional (private) residence as the place of occurrence of the external cause; Y99.8 Other external cause status
CPT/HCPCS: 72110; 99284

== ENCOUNTER 2020-09-03 11:05 | Emergency (ER) | payer MEDICARE, OTHER ==
[~2020-09-03] VITALS: Ht 157.5 cm; Wt 92.0 kg
[~2020-09-03 11:05] MED LIST changes: +DAPT500V6 IVPB; +DOXY100T PO
[2020-09-03 12:21] LABS: BASOPHILS % (AUTO) 1 % (0-1); EOSINOPHILS % (AUTO) 8 % (1-7); LYMPHOCYTES % (AUTO) 13 % (22-44); MD NO; MEAN CORPUSCULAR HEMOGLOBIN 29.8 pg (27.0-34.8); MEAN CORPUSCULAR HGB CONC 32.8 g/dL (32.4-35.8); MONOCYTES % (AUTO) 7 % (2-9); NEUTROPHILS % (AUTO) 72 % (42-75); PLATELET COUNT 423 x10^3/uL (130-400); RED BLOOD COUNT 3.95 x10^6/uL (3.82-5.3); RED CELL DISTRIBUTION WIDTH 14.8 % (9.6-15.2)
[2020-09-03 12:22] LABS: ALBUMIN 2.9 g/dL (3.4-5.0); ANION GAP 7 mmol/L (5-15); CALCIUM 9.6 mg/dL (8.5-10.1); CHLORIDE 110 mmol/L (98-107); CREATININE 0.84 mg/dL (0.55-1.02)
[2020-09-03 12:32] VITALS: BP 140/80
--- NOTE | 2020-09-03 13:22 | NUR ---
CONTACTED SURGICAL FLOOR REGARDING WOUND PUMP AND RUNNIG TESTS TO SEE IF IT IS WORKING. SURGICAL NURSE TO COME DOWN AND TEST EQUIPMENT. MADE AWARE.
== END 2020-09-03 14:07 | disposition home or self-care (01) ==
LOC: ED 11:53
DX: Z48.01 Encounter for change or removal of surgical wound dressing (principal); I10 Essential (primary) hypertension; E78.5 Hyperlipidemia, unspecified; Z86.73 Personal history of transient ischemic attack (TIA), and cerebral infarction without residual deficits; Z88.2 Allergy status to sulfonamides
CPT/HCPCS: 36415; 80048; 82040; 85025; 99283